=== PATIENT | female | born 1995 | race Caucasian/White ===

== ENCOUNTER 2019-02-24 10:51 | Emergency (ER) | payer MEDICAID ==
[~2019-02-24] VITALS: Ht 154.9 cm; Wt 48.0 kg
[2019-02-24 11:02] VITALS: BP 119/75
[2019-02-24 11:43] LABS: CLARITY,URINE CLOUDY (Clear); COLOR,URINE YELLOW (Yellow); GLUCOSE, URINE NEGATIVE (Neg); KETONES,URINE NEGATIVE (Neg); LEUKOCYTE ESTERASE ,URINE LARGE (Neg); NITRITES, URINE NEGATIVE (Neg); OCCULT BLOOD,URINE LARGE (Neg); PROTEIN,URINE 100 mg/dl (Neg); UROBILINOGEN,URINE 0.2 E.U/dL (0.2-1.0)
[2019-02-24 11:44] LABS: UA COLLECTION TYPE CLN CATCH MIDSTREAM; URINE HCG NEGATIVE (NEG)
[2019-02-24 11:52] LABS: BACTERIA,URINE 2+ /HPF (Neg); SQUAMOUS EPITHELIAL CELL,UR FEW /LPF (FEW); WBC,URINE TNTC /HPF (0-4)
[2019-02-24] MEDS ORDERED: DOXY100T2 PO (12:43)
[2019-02-24] MEDS ORDERED: azithromycin 250mg tablet PO ONE (12:45)
[2019-02-24] MEDS ORDERED: CefTRIAXone 1000mg IM Kit (w/lidocaine diluent) IM ONE (12:45)
== END 2019-02-24 13:28 | disposition home or self-care (01) ==
LOC: ER 10:52
DX: N39.0 Urinary tract infection, site not specified (principal); F17.200 Nicotine dependence, unspecified, uncomplicated; Z20.2 Contact with and (suspected) exposure to infections with a predominantly sexual mode of transmission; Z79.899 Other long term (current) drug therapy; Z87.440 Personal history of urinary (tract) infections
CPT/HCPCS: 36415; 81001; 81025; 87077; 87088; 87186; 87491; 87591; 96372; 99283; J0696

== ENCOUNTER 2021-12-12 20:56 | Emergency (ER) | payer MEDICAID ==
[~2021-12-12] VITALS: Ht 154.9 cm; Wt 49.5 kg
[~2021-12-12 20:56] MED LIST: DOXY100T2 PO
[2021-12-12 21:07] VITALS: BP 113/74
[2021-12-12] MEDS ORDERED: ibuprofen tablet 400 MG TABLET PO ONE (22:25)
== END 2021-12-12 23:11 | disposition home or self-care (01) ==
LOC: VAS 20:59 → ER 23:11
DX: S40.812A Abrasion of left upper arm, initial encounter (principal); S40.811A Abrasion of right upper arm, initial encounter; M54.2 Cervicalgia; R51.9 Headache, unspecified; Z72.89 Other problems related to lifestyle; Z79.899 Other long term (current) drug therapy; V89.2XXA Person injured in unspecified motor-vehicle accident, traffic, initial encounter; Y93.89 Activity, other specified; Y92.488 Other paved roadways as the place of occurrence of the external cause; Y99.8 Other external cause status
CPT/HCPCS: 99282